=== PATIENT | male | born 1985 | race Caucasian/White ===

== ENCOUNTER 2017-10-05 06:44 | Emergency (ER) | payer OTHER ==
[2017-10-05] MEDS: KETOROLAC 60 MG/2 ML VIAL (J1885) IM (07:48)
== END 2017-10-05 08:21 | disposition home or self-care (01) ==
LOC: M ED 06:44
DX: M54.5 Low back pain (principal); M47.16 Other spondylosis with myelopathy, lumbar region; M48.07 Spinal stenosis, lumbosacral region; M46.96 Unspecified inflammatory spondylopathy, lumbar region
CPT/HCPCS: J1885